=== PATIENT | female | born 1975 | race Two or more races ===

== ENCOUNTER 2016-04-12 17:37 | Emergency (ER) | payer SELFPAY ==
--- NOTE | 2016-04-12 18:08 | EDM.PDOC ---
ED HPI Trauma - General Chief Complaint: Upper Extremity Injury/Pain Stated Complaint: LEFT ARM PN Time Seen by Provider: 04/12/16 17:55 Source: Reports: Patient History Limitations: Reports: No limitations - History of Present Illness INITIAL COMMENTS - FREE TEXT/NARRATIVE: Patient returns for evaluation and treatment of left arm discomfort. She reports that symptoms began yesterday. She describes a squeezing sensation to her left arm. She also reports numbness, tingling, swelling and decreased motion in her bilateral hands. She also reports cramping to her bilateral calfs. Patient swelling in her hands which is now subsided. She denies any chest pain, neck pain, shortness of breath, fevers, nausea or vomiting. She states that she is "always" diaphoretic, no change. She denies any recent illness or any recent travel. Patient is healthy with no know medical conditions. She is not on any medications. Occurred When: yesterday Pain/Injury Location: Reports: upper extremity, left Allergies/ADRs: Allergies No Known Allergies Allergy (Verified 04/12/16 17:47) Home Medications: Ambulatory Orders . 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 Denies: chills, fever Respiratory: Denies: shortness of breath Cardiovascular: Denies: chest pain GI/Abdominal: Denies: Nausea, Vomiting Musculoskeletal: Reports: arm pain (left upper arm), hand pain (bilteral), joint swelling (bilteral hands). Denies: neck pain Neurological: Reports: headache (chronic, no chagne), numbness (bilateral hands) , tingling (bilteral hands) Trauma Exam - Physical Exam Exam: See Below Exam Limited By: No limitations General Appearance: Reports: alert, WD/WN, no apparent distress Head: Reports: atraumatic, normocephalic Eyes: bilateral eye: PERRL Throat/Mouth: Reports: Normal inspection, Normal lips, Normal oropharynx, Normal voice, No airway compromise Neck: Reports: non-tender, normal alignment, normal inspection, other (negative spurling's test) Respiratory Exam: Reports: no respiratory distress, lungs clear, normal breath sounds, chest non-tender Cardiovascular: Reports: normal peripheral pulses, regular rate, rhythm, no murmur Back: Reports: normal inspection Extremities: Reports: no evidence of injury, normal range of motion (hands, shoulders and elbows), non-tender. Denies: joint effusion (no swelling to the hands appreciated) Neurologic: Reports: alert, normal mood/affect EKG INTERPRETATION EKG Date: 04/12/16 Time: 18:25 Rhythm: NSR Rate (beats/min): 77 [place]: normal P-wave: present QRS: normal ST-T: normal QT: normal EKG Interpretation Comments: NSR at 77 bpm. No acute findings. Reviewed by myself and Dr. Ruiz. Course - Vital Signs Last Recorded V/S: Last Vital Signs Temp 36.9 C 04/12/16 17:48 Pulse 84 04/12/16 18:40 Resp 16 04/12/16 18:40 BP 124/73 04/12/16 18:40 Pulse Ox 100 04/12/16 18:40 - Orders/Labs/Meds Orders: Active Orders 24 hr Category Date Time Status EKG 12 Lead [EKG Documentation Completion] [RC] STAT Care 04/12/16 18:04 Active Labs: Laboratory Tests 04/12/16 04/12/16 04/12/16 Range/Units 18:21 18:21 18:21 WBC 8.00 (3.98-10.04) K/mm3 RBC 3.87 L (3.98-5.22) M/mm3 Hgb 12.0 (11.2-15.7) gm/L Hct 36.1 (34.1-44.9) % MCV 93.3 (79.4-94.8) fl MCH 31.0 (25.6-32.2) pg MCHC 33.2 (32.2-35.5) g/dl RDW Std Deviation 45.1 (36.4-46.3) fL Plt Count 332 (182-369) K/mm3 MPV 8.8 L (9.4-12.3) fl Neut % (Auto) 56.8 (34.0-71.1) % Lymph % (Auto) 29.1 (19.3-51.7) % [place] % (Auto) 11.1 (4.7-12.5) % Eos % (Auto) 2.5 (0.7-5.8) Baso % (Auto) 0.4 (0.1-1.2) % Neut # 4.54 (1.56-6.13) K/mm3 Lymph # 2.33 (1.18-3.74) K/mm3 [place] # 0.89 H (0.24-0.36) K/mm3 Eos # 0.20 (0.04-0.36) K/mm3 Baso # 0.03 (0.01-0.08) K/mm3 D-Dimer, Quantitative (0.19-0.59) mg/L Sodium 137 (136-145) mEq/L Potassium 3.7 (3.5-5.1) mEq/L Chloride 104 (98-107) mEq/L Carbon Dioxide 27 (21-32) mEq/L Anion Gap 9.7 (5-15) BUN 10 (7-18) mg/dL Creatinine 0.6 (0.55-1.02) mg/dL Est Cr Clr Drug Dosing TNP Estimated GFR (MDRD) > 60 (>60) mL/min BUN/Creatinine Ratio 16.7 (14-18) Glucose 106 (74-106) mg/dL Calcium 8.6 (8.5-10.1) mg/dL Magnesium 1.8 (1.8-2.4) mg/dl Total Bilirubin 0.1 L (0.2-1.0) mg/dL AST 15 (15-37) U/L ALT 31 (14-59) U/L Alkaline Phosphatase 91 (46-116) U/L CK-MB (CK-2) 1.8 (0-3.6) ng/ml Troponin I < 0.017 (0.00-0.056) ng/mL C-Reactive Protein 0.2 (<1.0) mg/dL Total Protein 6.8 (6.4-8.2) g/dl Albumin 3.4 (3.4-5.0) g/dl Globulin 3.4 gm/dL Albumin/Globulin Ratio 1.0 (1-2) TSH 3rd Generation 0.795 (0.358-3.74) uIU/mL 04/12/16 Range/Units 18:21 WBC (3.98-10.04) K/mm3 RBC (3.98-5.22) M/mm3 Hgb (11.2-15.7) gm/L Hct (34.1-44.9) % MCV (79.4-94.8) fl MCH (25.6-32.2) pg MCHC (32.2-35.5) g/dl RDW Std Deviation (36.4-46.3) fL Plt Count (182-369) K/mm3 MPV (9.4-12.3) fl Neut % (Auto) (34.0-71.1) % Lymph % (Auto) (19.3-51.7) % [place] % (Auto) (4.7-12.5) % Eos % (Auto) (0.7-5.8) Baso % (Auto) (0.1-1.2) % Neut # (1.56-6.13) K/mm3 Lymph # (1.18-3.74) K/mm3 [place] # (0.24-0.36) K/mm3 Eos # (0.04-0.36) K/mm3 Baso # (0.01-0.08) K/mm3 D-Dimer, Quantitative < 0.19 L (0.19-0.59) mg/L Sodium (136-145) mEq/L Potassium (3.5-5.1) mEq/L Chloride (98-107) mEq/L Carbon Dioxide (21-32) mEq/L Anion Gap (5-15) BUN (7-18) mg/dL Creatinine (0.55-1.02) mg/dL Est Cr Clr Drug Dosing Estimated GFR (MDRD) (>60) mL/min BUN/Creatinine Ratio (14-18) Glucose (74-106) mg/dL Calcium (8.5-10.1) mg/dL Magnesium (1.8-2.4) mg/dl Total Bilirubin (0.2-1.0) mg/dL AST (15-37) U/L ALT (14-59) U/L Alkaline Phosphatase (46-116) U/L CK-MB (CK-2) (0-3.6) ng/ml Troponin I (0.00-0.056) ng/mL C-Reactive Protein (<1.0) mg/dL Total Protein (6.4-8.2) g/dl Albumin (3.4-5.0) g/dl Globulin gm/dL Albumin/Globulin Ratio (1-2) TSH 3rd Generation (0.358-3.74) uIU/mL - Radiology Interpretation Free Text/Narrative:: CT chest, abdomen and pelvis with contrast impression per Vrad: (Chest) 1. No evidence of PE to the segmental level. 2. No aortic aneurysm. 3. No aortic dissection. (Abdomen and Pelvis) 1. No aortic aneurysm 2. No aortic dissection 3. Again demonstrated is soft tissue density in the left para-aortic region. Previously it measureed 3.6 x 2.2 cm. On today's study the soft tissue density measures 3.5 x 1.5 cm. 4. Gallstones in the gallbladder 5. Intermittent bowel wall thickening is seen in the jejunum and may represent enteritis including infectious and inflammatory etiologies. - Re-Assessments/Exams Free Text/Narrative Re-Assessment/Exam: 04/12/16 19:55 Labs returned. WBc is normal at 8.00, hgb is 12.0 and plts are 332. Trop is within normal limits at <0.017 CKMB is within normal limits at 1.8 Sodium is 137, potassium is 3.7 and chloride is 104. anion gap is 9.7, glucose is 106 Magnesium is 1.8 TSH is within normal limits at 0.795 CRP is 0.2 D-dimer is within normal limits at <0.19 reviewed the labs and ekg with the patient. [place] to likely be muscular skeletal in origin. Will discharge home at this time. Discharge instructions as documented. Departure - Departure Time of Disposition: 19:57 Disposition: Home, Self-Care 01 Condition: good Clinical Impression: Muscle spasm, Swelling of both hands Referrals: PCP,None [Primary Care Provider] - Forms: ED Department Discharge Additional Instructions: OTC aleve for pain and swelling relief. Drink plenty of fluids. Moist heat to the sore areas as needed for pain relief. May also try a topical product such as icy hot or bengay. Follow-up with family med or internal med in 2 weeks if not better. Please return to the ER should your symptoms change or worsen. - My Orders Last 24 Hours: My Active Orders 04/12/16 18:04 EKG 12 Lead [EKG Documentation Completion] [RC] STAT - Assessment/Plan Last 24 Hours: My Active Orders 04/12/16 18:04 EKG 12 Lead [EKG Documentation Completion] [RC] STAT
[2016-04-12 20:23] VITALS: BP 116/83
== END 2016-04-12 20:17 | disposition home or self-care (01) ==
LOC: JD.ED 17:37
DX: M62.838 Other muscle spasm (principal); R22.33 Localized swelling, mass and lump, upper limb, bilateral; Z98.890 Other specified postprocedural states; F17.210 Nicotine dependence, cigarettes, uncomplicated
CPT/HCPCS: 36415; 80053; 82553; 83735; 84443; 84484; 85025; 85379; 86140; 93005; 99284; 99284-25

== ENCOUNTER 2017-10-06 18:11 | Emergency (ER) | payer SELFPAY ==
[2017-10-06 18:24] VITALS: BP 130/80
--- NOTE | 2017-10-06 18:59 | EDM.PDOC ---
ED HPI GENERAL MEDICAL PROBLEM - General Chief Complaint: Neurological Problem Stated Complaint: NUMBNESS IN HANDS Time Seen by Provider: 10/06/17 18:18 Source of Information: Reports: Patient History Limitations: Reports: No Limitations - History of Present Illness INITIAL COMMENTS - FREE TEXT/NARRATIVE: 42-year-old female presenting with chief complaint of bilateral paresthesias in her hands. 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 Shortly thereafter she noted bilateral paresthesias in the tips of her fingers that would come intermittently and seemed to be associated with working. Patient does make repetitive motions with her hands all day at work. She has no weakness of her hands or fingers no color changes noted either. - Related Data Allergies Allergy/AdvReac Type Severity Reaction Status Date / Time No Known Allergies Allergy Verified 10/06/17 18:21 Home Meds: Home Meds . 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: lumbectomy to left breast, benign - Past Surgical History HEENT Surgical History: Reports: Oral Surgery Social & Family History - Tobacco Use Smoking Status *Q: Current Every Day Smoker Years of Tobacco use: 20 Packs/Tins Daily: 0.1 ED ROS GENERAL - Review of Systems Review Of Systems: See Below Constitutional: Reports: No Symptoms HEENT: Reports: No Symptoms Respiratory: Reports: No Symptoms Cardiovascular: Reports: No Symptoms Musculoskeletal: Reports: No Symptoms Skin: Reports: No Symptoms Neurological: Reports: Tingling ED EXAM, GENERAL - Physical Exam Exam: See Below Exam Limited By: No Limitations General Appearance: Alert, No Apparent Distress Head: Atraumatic, Normocephalic Respiratory/Chest: No Respiratory Distress Cardiovascular: Normal Peripheral Pulses Neurological: Alert, Oriented, CN II-XII Intact, Other (sensation intact to bilateral hands in all dermatomes to sharp/dull, strength 5/5 bilaterally) Skin Exam: Warm, Dry, Intact Course - Vital Signs Last Recorded V/S: Last Vital Signs Temp 36.1 C 10/06/17 18:21 Pulse 92 10/06/17 18:21 Resp 16 10/06/17 18:21 BP 130/80 10/06/17 18:21 Pulse Ox 100 10/06/17 18:21 - Re-Assessments/Exams Free Text/Narrative Re-Assessment/Exam: 10/06/17 22:13 42-year-old female presenting with chief complaint of bilateral hand paresthesias. Patient has a non-concerning exam. Her symptoms do not confined to a dermatome that were noted be indicative of central pathology. Regular history of physical exam are most consistent with carpal tunnel syndrome It does make sense that her symptoms started approximately 1 month ago when she started her new job and makes repetitive hand movements. At this time there is no indication for diagnostic testing in the emergency department. She had interactions for primary care and given information on carpal tunnel syndrome. She is discharged home in good condition. Departure - Departure Time of Disposition: 18:56 Disposition: Home, Self-Care 01 Clinical Impression: Carpal tunnel syndrome Qualifiers: Laterality: bilateral Qualified Code(s): G56.03 - Carpal tunnel syndrome, bilateral upper limbs - Discharge Information *PRESCRIPTION DRUG MONITORING PROGRAM REVIEWED*: Not Applicable *COPY OF PRESCRIPTION DRUG MONITORING REPORT IN PATIENT BETH: Not Applicable Instructions: Carpal Tunnel Syndrome Referrals: PCP,None [Primary Care Provider] - Forms: ED Department Discharge Additional Instructions: You were seen in the emergency department today for numbness/tingling in her hands. At this time I feel that her history and physical exam are most consistent with carpal tunnel syndrome. It is safer U to go home at this time. No further testing is needed tonight. He may follow up with her primary care physician for further care.
== END 2017-10-06 19:04 | disposition home or self-care (01) ==
LOC: JD.ED 18:11
DX: G56.03 Carpal tunnel syndrome, bilateral upper limbs (principal); F17.210 Nicotine dependence, cigarettes, uncomplicated
CPT/HCPCS: 99283

== ENCOUNTER 2019-07-23 06:29 | Emergency (ER) | payer SELFPAY ==
[2019-07-23 06:40] VITALS: BP 136/79; PULSE 108
[2019-07-23] MEDS ORDERED: Sodium Chloride 0.9% 10 ML Syringe FLUSH PRN (07:03)
--- NOTE | 2019-07-23 08:04 | EDM.PDOC ---
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 This started about 3 days ago. She had her period 3 weeks ago. She noticed some spotting a few days after that. She went to the walk in clinic and she was put on flagyl. She said a few days after taking them she started bleeding more. She has some clots at times. She has some pelvic pain at times. She does not think she is . She has no fever, chills, cough, congestion, runny nose, chest pain, shortness of breath, nausea or vomiting. 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: lumbectomy to left breast, benign - Past Surgical History HEENT Surgical History: Reports: Oral Surgery Social & Family History - Tobacco Use Smoking Status *Q: Current Every Day Smoker Years of Tobacco use: 20 Packs/Tins Daily: 0.1 ED ROS GENERAL - Review of Systems Review Of Systems: See Below Constitutional: Reports: No Symptoms HEENT: Reports: No Symptoms Respiratory: Reports: No Symptoms Cardiovascular: Reports: No Symptoms Endocrine: Reports: No Symptoms GI/Abdominal: Reports: Abdominal Pain, Nausea, Vomiting : Reports: Other (Pelvic pain and vaginal bleeding) ED EXAM, RENAL/ - Physical Exam Exam: See Below Exam Limited By: No Limitations General Appearance: Alert, No Apparent Distress Ears: Normal External Exam Nose: Normal Inspection Head: Atraumatic, Normocephalic Neck: Normal Inspection Respiratory/Chest: No Respiratory Distress, Lungs Clear, Normal Breath Sounds Cardiovascular: Regular Rate, Rhythm, No Edema, No Murmur GI/Abdominal: Soft, Non-Tender, No Organomegaly, No Mass Back Exam: Normal Inspection Extremities: Normal Inspection Course - Vital Signs Last Recorded V/S: Last Vital Signs Temp 97.9 F 07/23/19 06:38 Pulse 108 H 07/23/19 06:38 Resp 16 07/23/19 06:38 BP 136/79 07/23/19 06:38 Pulse Ox 99 07/23/19 06:38 - Orders/Labs/Meds Orders: Active Orders 24 hr Category Date Time Status Pelvic Exam, Set Up [RC] ASDIRECTED Care 07/23/19 07:03 Active Peripheral IV Care [RC] . DIRECTED Care 07/23/19 07:03 Active GC/CHLAMYDIA BY PCR [MOLEC] Stat Lab 07/23/19 08:15 Received Sodium Chloride 0.9% [Saline Flush] Med 07/23/19 07:03 Active 10 ml FLUSH ASDIRECTED PRN Peripheral IV Insertion Adult [OM.PC] Stat Oth 07/23/19 07:03 Ordered Medication Orders Sodium Chloride (Saline Flush) 10 ml FLUSH ASDIRECTED PRN PRN Reason: Keep Vein Open Last Admin: 07/23/19 08:28 Dose: 10 ml Labs: Laboratory Tests 07/23/19 07/23/19 Range/Units 06:50 06:50 WBC 11.26 H (3.98-10.04) K/mm3 RBC 4.10 (3.98-5.22) M/mm3 Hgb 12.2 (11.2-15.7) gm/dl Hct 37.4 (34.1-44.9) % MCV 91.2 (79.4-94.8) fl MCH 29.8 (25.6-32.2) pg MCHC 32.6 (32.2-35.5) g/dl RDW Std Deviation 45.9 (36.4-46.3) fL Plt Count 474 H D (182-369) K/mm3 MPV 8.7 L (9.4-12.3) fl Neut % (Auto) 69.6 (34.0-71.1) % Lymph % (Auto) 18.7 L (19.3-51.7) % [place] % (Auto) 9.6 (4.7-12.5) % Eos % (Auto) 1.6 (0.7-5.8) Baso % (Auto) 0.3 (0.1-1.2) % Neut # (Auto) 7.85 H (1.56-6.13) K/mm3 Lymph # (Auto) 2.10 (1.18-3.74) K/mm3 [place] # (Auto) 1.08 H (0.24-0.36) K/mm3 Eos # (Auto) 0.18 (0.04-0.36) K/mm3 Baso # (Auto) 0.03 (0.01-0.08) K/mm3 Manual Slide Review Sodium 139 (136-145) mEq/L Potassium 3.4 L (3.5-5.1) mEq/L Chloride 104 (98-107) mEq/L Carbon Dioxide 26 (21-32) mEq/L Anion Gap 12.4 (5-15) BUN 13 (7-18) mg/dL Creatinine 0.7 (0.55-1.02) mg/dL Est Cr Clr Drug Dosing 74.43 mL/min Estimated GFR (MDRD) > 60 (>60) mL/min BUN/Creatinine Ratio 18.6 H (14-18) Glucose 136 H (74-106) mg/dL Calcium 8.2 L (8.5-10.1) mg/dL Total Bilirubin 0.3 (0.2-1.0) mg/dL AST 16 (15-37) U/L ALT 20 (14-59) U/L Alkaline Phosphatase 87 (46-116) U/L Total Protein 7.0 (6.4-8.2) g/dl Albumin 3.4 (3.4-5.0) g/dl Globulin 3.6 gm/dL Albumin/Globulin Ratio 0.9 L (1-2) HCG, Quant < 1.0 mIU/mL Meds: Medications Generic Name Dose Route Start Last Admin Trade Name Freq PRN Reason Stop Dose Admin Sodium Chloride 10 ml 07/23/19 07:03 07/23/19 08:28 Saline Flush FLUSH 10 ml ASDIRECTED PRN Administration Keep Vein Open - Re-Assessments/Exams Free Text/Narrative Re-Assessment/Exam: 07/23/19 08:10 I ordered labs, transvaginal non OB US, and pelvic exam. I will do a wet prep and GC. 07/23/19 09:17 Her CBC and CMP look good. Her HCG is negative. Her wet prep looks good. Her US shows 2 uterine fibroids 2.7cm and 3.9cm. Endometrial thickness is normal. Small amount of fluid noted within the endometrial cavity presumably representing small amount of blood. Nonvisualized left ovary with left adnexia appearing unremarkable. Small physiologic cyst within the right ovary. I called Dr Marcano and her recommended some citotec BID for 1 week and he will see her next week. Departure - Departure Time of Disposition: 09:25 Disposition: Home, Self-Care 01 Condition: Good Clinical Impression: Vaginal bleeding Uterine fibroid Qualifiers: Uterine leiomyoma location: unspecified location Qualified Code(s): D25.9 - Leiomyoma of uterus, unspecified - Discharge Information *PRESCRIPTION DRUG MONITORING PROGRAM REVIEWED*: Not Applicable *COPY OF PRESCRIPTION DRUG MONITORING REPORT IN PATIENT BETH: Not Applicable Prescriptions: miSOPROStoL [Cytotec] 200 mcg PO BID #14 tab Referrals: PCP,None [Primary Care Provider] - Ant Marcano MD [Physician] - 1 Week Forms: ED Department Discharge, ED Return to Work/School Form Additional Instructions: Drink plenty of fluids. Take the cytotec 2 times per day for 7 days. Take tylenol or motrin for any pain. Please return if you have more bleeding such as over a pad an hour. Follow up with Dr Marcano next week. Stop taking the flagyl. Sepsis Event Note (ED) - Evaluation Sepsis Screening Result: No Definite Risk - Focused Exam Vital Signs: Vital Signs Temp Pulse Resp BP Pulse Ox 07/23/19 06:38 97.9 F 108 H 16 136/79 99 - My Orders Last 24 Hours: My Active Orders 07/23/19 07:03 Pelvic Exam, Set Up [RC] ASDIRECTED Peripheral IV Care [RC] . DIRECTED Sodium Chloride 0.9% [Saline Flush] 10 ml FLUSH ASDIRECTED PRN Peripheral IV Insertion Adult [OM.PC] Stat 07/23/19 08:15 GC/CHLAMYDIA BY PCR [MOLEC] Stat - Assessment/Plan Last 24 Hours: My Active Orders 07/23/19 07:03 Pelvic Exam, Set Up [RC] ASDIRECTED Peripheral IV Care [RC] . DIRECTED Sodium Chloride 0.9% [Saline Flush] 10 ml FLUSH ASDIRECTED PRN Peripheral IV Insertion Adult [OM.PC] Stat 07/23/19 08:15 GC/CHLAMYDIA BY PCR [MOLEC] Stat
--- NOTE | 2019-07-23 08:12 | US ---
Pelvic ultrasound: Multiple real-time images were obtained transvaginally. Comparison: No previous study. Findings: 2 hypoechoic areas are seen within the uterus believed to represent fibroids. One fibroid on the right side within the uterine body measuring up to 2.7 cm and second fibroid is on the left side within the uterine body measuring up to 3.9 cm. Endometrial thickness is 1.1 cm. Minimal fluid is seen within the endometrial cavity. Right ovary shows a small cyst measuring 1.8 cm believed to be physiologic. Left ovary is not visualized but left adnexa appears unremarkable. No free fluid is seen. Minimal nabothian cysts are present. Measurements: Uterus: Length 10.0 cm, AP height 5.3 cm, transverse width 6.1 cm Right ovary: 3.3 x 2.1 x 1.8 cm Impression: 1. 2 uterine fibroids. Size as noted above. 2. Endometrial thickness is normal. Small amount of fluid noted within the endometrial cavity presumably representing small amount of blood. 3. Nonvisualized left ovary with left adnexa appearing unremarkable. 4. Small physiologic cyst within the right ovary. Diagnostic code #2 Study was dictated in MDT
[2019-07-23 11:04] LABS: C. TRACHOMATIS BY PCR NOT DETECTED; N. GONORRHOEAE BY PCR NOT DETECTED
== END 2019-07-23 09:39 | disposition home or self-care (01) ==
LOC: JD.ED 06:29
DX: D25.9 Leiomyoma of uterus, unspecified (principal); F17.210 Nicotine dependence, cigarettes, uncomplicated; Z79.899 Other long term (current) drug therapy
CPT/HCPCS: 36415; 76830; 76830-26; 80053; 84702; 85025; 87210; 87491; 87591; 87808; 99283; 99284-25

== ENCOUNTER 2020-01-08 07:00 | Day surgery (SDC) | payer BC ==
[~2020-01-08 07:00] MED LIST: Lactated Ringers 1,000 ML IV SCH; Lidocaine 1%/Sod Bicarbonate in NS 8.4% 1 ML Syringe IDERM PRN; Sodium Chloride 0.9% 10 ML Syringe FLUSH PRN
[2020-01-08] MEDS ORDERED: Sodium Chloride 0.9% 50 ML SDV ONE (07:09)
[2020-01-08] MEDS ORDERED: Lidocaine 1% with EPINEPHrine 1:100,000 20 ML MDV ONE (07:09)
[2020-01-08] MEDS ORDERED: Lidocaine 1% 4 ML ONE (07:40)
[2020-01-08] MEDS ORDERED: Propofol 200 MG/20 ML SDV ONE (07:40)
[2020-01-08] MEDS ORDERED: ceFAZolin 1 GM Vial ONE (07:40)
[2020-01-08] MEDS ORDERED: Midazolam 1 MG/ML 2 ML SDV ONE (07:40)
[2020-01-08] MEDS ORDERED: fentaNYL 250 MCG/5 ML SDV ONE (07:41)
[2020-01-08] MEDS ORDERED: Succinylcholine/Sod PF 100 MG/5 ML SYRINGE IV ONE ×2 (07:46→08:08)
[2020-01-08] MEDS ORDERED: HYDROmorphone 0.5 MG/0.5 ML Syringe ONE (07:53)
[2020-01-08] MEDS ORDERED: Dexamethasone 4 MG/ML 5 ML MDV ONE (08:34)
[2020-01-08] MEDS ORDERED: Ondansetron 4 MG/2 ML SDV ONE (08:35)
[2020-01-08] MEDS ORDERED: Lactated Ringers 1,000 ML ONE (08:45)
[2020-01-08] MEDS ORDERED: Ketorolac 30 MG/ML SDV ONE (08:52)
[2020-01-08] MEDS ORDERED: fentaNYL 100 MCG/2 ML SDV IVPUSH PRN (09:17)
[2020-01-08] MEDS ORDERED: HYDROmorphone 0.5 MG/0.5 ML Syringe IVPUSH PRN (09:17)
[2020-01-08] MEDS ORDERED: Ondansetron 4 MG/2 ML SDV IVPUSH PRN (09:17)
--- NOTE | 2020-01-08 09:28 | PCM.OPNOTE ---
- General Post-Op/Procedure Note Date of Surgery/Procedure: 01/08/20 Operative Procedure(s): Total vaginal hysterectomy bilateral salpingectomy (removal of remaining tubal tissue patient had previous tubal ligation) Pre Op Diagnosis: Heavy irregular menses, fibroid uterus Post-Op Diagnosis: Same Primary Surgeon: Ant Marcano Secondary Surgeon: Tim Be Anesthesia Provider: Lincoln Elliott Part Time Receptionist: Flavia Taylor I (PAS) Reason Part Time Receptionist Was Necessary: Retraction, decrease comorbidity and mortality Role of Part Time Receptionist: Retraction, decrease comorbidity and mortality Fluid Replacement, Intraop: 1,400 Output, Urine Amount: 50 EBL in mLs: 100 Drain/Tube Comments:: None Condition: Good Free Text/Narrative:: Intake & Output 01/07/20 01/08/20 01/08/20 22:59 06:59 14:59 Output Total 50 Balance -50 Patient was transferred to the operating room medical office building and placed in the low dorsal position after general anesthesia with endotracheal intubation. SCDs in place and functioning. Ancef 2 g given intravenously prior to surgery. Timeout was performed confirming name, date of and planned procedure. Patient was prepared and draped in a sterile fashion. [place] under anesthesia before the prep had revealed anterior uterus irregular in consistency not significantly enlarged if at all. No adnexal masses palpated. Bladder was drained of urine 50 mL. 10 mL of lidocaine 0.25% with epinephrine injected in multiple confluent areas around the cervix. Circumscribing incision was made. Posterior colpotomy performed without difficulty. Utilizing Enseal closure device the uterosacral cardinal ligaments bilaterally were crossclamped activated and device incised. An additional bite on the left and right side for the uterine vasculature was performed. Anterior colpotomy was then performed without difficulty. During cephalad utilizing Enseal crossclamping activating and incising until the area of the triple pedicles was approximated. Crossclamping with Anthony clamps the uterus was removed along with the cervix. The tubes were easily identified and grasped with Elbridge clamp and brought into the operative area crossclamped with the Enseal and activated and incised and removed. Both ovaries appeared normal. Additional small bleeders were electrocoagulated with the Enseal device. Hemostasis was normal. Sponge needle pack instrument count sharp count correct x2 and the vaginal cuff was closed with a running locking suture posteriorly of 0 Monocryl. Additional 0 Monocryl utilized to approximate the anterior to the posterior vaginal cuff with running locking suture. Hemostasis was obtained without difficulty and no bleeding prior to closure of the vaginal cuff. Patient transported postanesthesia care unit in satisfactory condition. I called her daughter Joi [phone] at 0910 hrs. and all questions answered to voiced satisfaction. Patient is planning dismissal today.
--- NOTE | 2020-01-08 10:44 | PCM.POSTAN ---
POST ANESTHESIA ASSESSMENT - MENTAL STATUS Mental Status: Somnolent - VITAL SIGNS Vital Signs: Last Vital Signs Temp 36.5 C 01/08/20 10:35 Pulse 85 01/08/20 10:35 Resp 19 01/08/20 10:35 BP 111/70 01/08/20 10:35 Pulse Ox 96 01/08/20 10:38 - RESPIRATORY Respiratory Status: Respiratory Rate WNL, Airway Patent, O2 Saturation Stable, Supplemental Oxygen - CARDIOVASCULAR CV Status: Pulse Rate WNL, Blood Pressure Stable - GASTROINTESTINAL GI Status: No Symptoms - PAIN Pain Score: 0 - POST OP HYDRATION Hydration Status: Adequate & Stable
--- NOTE | 2020-01-08 10:53 | PCM.PREANE ---
<Enid Paulino - Last Filed: 01/08/20 10:47> Preanesthetic Assessment - Physical Assessment Height: 1.55 m Weight: 73.936 kg - Allergies Allergies/Adverse Reactions: Allergies Allergy/AdvReac Type Severity Reaction Status Date / Time No Known Allergies Allergy Verified 09/24/18 01:58 PreAnesthesia Questionnaire - Past Health History Medical/Surgical History: Denies Medical/Surgical History MEDICAL LIAISON History: Reports: Other OB/BYN History: lumbectomy to left breast, benign - Past Surgical History HEENT Surgical History: Reports: Oral Surgery - HOME MEDS Home Medications: Home Meds Acetaminophen 650 mg PO Q6H #50 capsule 01/08/20 [Rx] Ibuprofen [Motrin] 600 mg PO Q6H PRN #50 tab 01/08/20 [Rx] Ondansetron [Zofran ODT] 4 mg PO Q6H PRN #20 tab.dis 01/08/20 [Rx] oxyCODONE HCl/Acetaminophen [Percocet 5-325 mg Tablet] 1 each PO Q6H #12 tablet 01/08/20 [Rx] <Lincoln Elliott - Last Filed: 01/08/20 11:18> Preanesthetic Assessment - Procedure Proposed Procedure: Total Vaginal Hysterectomy - Anesthesia/Transfusion/Family Hx Anesthesia History: Prior Anesthesia Without Reaction - Review of Systems General: No Symptoms Pulmonary: No Symptoms Cardiovascular: No Symptoms Gastrointestinal: No Symptoms Neurological: No Symptoms Other: Reports: None - Physical Assessment NPO Status Date: 01/07/20 NPO Status Time: 20:00 Vital Signs: Last Vital Signs Temp 97.6 F 01/08/20 11:05 Pulse 87 01/08/20 11:05 Resp 19 01/08/20 11:05 BP 105/63 01/08/20 11:05 Pulse Ox 99 01/08/20 11:05 ASA Class: 2 Mental Status: Alert & Oriented x3 Airway Class: Mallampati = 3 Dentition: Reports: Edentulous ROM/Head Extension: Full Lungs: Clear to Auscultation, Normal Respiratory Effort Cardiovascular: Regular Rate, Regular Rhythm - Lab Values: Laboratory Last Values Urine HCG, Qual Negative (NEGATIVE) 01/08/20 06:57 Blood Type O POSITIVE 01/08/20 07:26 Gel Antibody Screen Negative 01/08/20 07:26 - Acknowledgements Anesthesia Type Planned: General Anesthesia Pt an Appropriate Candidate for the Planned Anesthesia: Yes Alternatives and Risks of Anesthesia Discussed w Pt/Guardian: Yes Pt/Guardian Understands and Agrees with Anesthesia Plan: Yes PreAnesthesia Questionnaire - CURRENT (IN HOUSE) MEDS Current Meds: Current Medications Fentanyl (Sublimaze) 50 mcg IVPUSH Q5M PRN PRN Reason: Pain Stop: 01/08/20 18:00 Last Admin: 01/08/20 10:16 Dose: 50 mcg Documented by: Hydromorphone HCl (Dilaudid) 0.5 mg IVPUSH Q10M PRN PRN Reason: Pain (severe 7-10) Stop: 01/08/20 18:00 Last Admin: 01/08/20 10:44 Dose: 0.5 mg Documented by: Lactated Ringer's (Ringers, Lactated) 1,000 mls @ 125 mls/hr IV ASDIRECTED MARY Stop: 01/08/20 23:00 Last Admin: 01/08/20 07:25 Dose: 125 mls/hr Documented by: Lidocaine/Sodium Bicarbonate (Buffered Lidocaine 1% In Ns 8.4%) 0.25 ml IDERM ONETIME PRN PRN Reason: Prior to IV Start Stop: 01/08/20 18:00 Last Admin: 01/08/20 07:25 Dose: 0.25 ml Documented by: Ondansetron HCl (Zofran) 4 mg IVPUSH ONETIME PRN PRN Reason: Nausea/Vomiting Stop: 01/08/20 18:00 Sodium Chloride (Saline Flush) 10 ml FLUSH ASDIRECTED PRN PRN Reason: Keep Vein Open Stop: 01/08/20 18:00 Discontinued Medications Cefazolin Sodium (Ancef) Confirm Administered Dose 2 gm .ROUTE .STK-MED ONE Stop: 01/08/20 07:41 Dexamethasone (Dexamethasone) Confirm Administered Dose 20 mg .ROUTE .STK-MED ONE Stop: 01/08/20 08:35 Fentanyl (Sublimaze) Confirm Administered Dose 250 mcg .ROUTE .STK-MED ONE Stop: 01/08/20 07:42 Hydromorphone HCl (Dilaudid) Confirm Administered Dose 0.5 mg .ROUTE .STK-MED ONE Stop: 01/08/20 07:54 Lidocaine HCl (Xylocaine-Mpf 1%) Confirm Administered Dose 4 mls @ as directed .ROUTE .STK-MED ONE Stop: 01/08/20 07:41 Lactated Ringer's (Ringers, Lactated) Confirm Administered Dose 1,000 mls @ as directed .ROUTE .STK-MED ONE Stop: 01/08/20 08:46 Ketorolac Tromethamine (Toradol) Confirm Administered Dose 30 mg .ROUTE .STK-MED ONE Stop: 01/08/20 08:53 Lidocaine/Epinephrine (Xylocaine 1% With Epinephrine 1:100,000) Confirm Administered Dose 20 ml .ROUTE .ST-MED ONE Stop: 01/08/20 07:10 Last Admin: 01/08/20 08:18 Dose: 2.5 ml Documented by: Midazolam HCl (Versed 1 Mg/Ml) Confirm Administered Dose 4 mg .ROUTE .STK-MED ONE Stop: 01/08/20 07:41 Ondansetron HCl (Zofran) Confirm Administered Dose 8 mg .ROUTE .STK-MED ONE Stop: 01/08/20 08:36 Propofol (Diprivan 20 Ml) Confirm Administered Dose 400 mg .ROUTE .STK-MED ONE Stop: 01/08/20 07:41 Sodium Chloride (Normal Saline) Confirm Administered Dose 50 ml .ROUTE .STK-MED ONE Stop: 01/08/20 07:10 Last Admin: 01/08/20 08:18 Dose: 7.5 ml Documented by:
--- NOTE | 2020-01-08 11:20 | PCM48HPAN ---
Post Anesthesia Note - EVALUATION WITHIN 48HRS OF ANESTHETIC Vital Signs in Normal Range: Yes Patient Participated in Evaluation: Yes Respiratory Function Stable: Yes Airway Patent: Yes Cardiovascular Function Stable: Yes Hydration Status Stable: Yes Pain Control Satisfactory: Yes Nausea and Vomiting Control Satisfactory: Yes Mental Status Recovered: Yes Vital Signs: Last Vital Signs Temp 97.6 F 01/08/20 11:05 Pulse 87 01/08/20 11:05 Resp 19 01/08/20 11:05 BP 105/63 01/08/20 11:05 Pulse Ox 99 01/08/20 11:05 - COMMENTS/OBSERVATIONS Free Text/Narrative:: Patient in stage 2 recovery, preparing for the discharge home
[2020-01-08 12:46] VITALS: BP 97/52; PULSE 73
== END 2020-01-08 12:40 | disposition home or self-care (01) ==
LOC: JD.SDS 07:00
PROVIDERS: ATTEND Obstetrics & Gynecology
DX: D25.2 Subserosal leiomyoma of uterus (principal); D25.1 Intramural leiomyoma of uterus; N80.0 Endometriosis of uterus; N87.9 Dysplasia of cervix uteri, unspecified; N72 Inflammatory disease of cervix uteri; N88.8 Other specified noninflammatory disorders of cervix uteri; N73.6 Female pelvic peritoneal adhesions (postinfective); N83.8 Other noninflammatory disorders of ovary, fallopian tube and broad ligament; F17.210 Nicotine dependence, cigarettes, uncomplicated; Z98.51 Tubal ligation status; Z90.10 Acquired absence of unspecified breast and nipple; Z90.49 Acquired absence of other specified parts of digestive tract; Z98.890 Other specified postprocedural states
CPT/HCPCS: 36415; 58262; 81025; 86850; 86900; 86901; J0330; J0690; J1100; J1170; J1885; J2001; J2250; J2405; J2704; J3010; J7120

== ENCOUNTER 2021-11-27 08:49 | Emergency (ER) | payer MEDICAID, OTHER ==
[2021-11-27 09:03] VITALS: BP 140/98; PULSE 85
== END 2021-11-27 09:55 | disposition home or self-care (01) ==
LOC: JD.ED 08:49
DX: R51.9 Headache, unspecified (principal); F17.210 Nicotine dependence, cigarettes, uncomplicated
CPT/HCPCS: 99283

== ENCOUNTER 2024-04-24 01:22 | Emergency (ER) | payer SELFPAY ==
[2024-04-24 01:36] VITALS: BP 154/90; PULSE 94
== END 2024-04-24 02:00 | disposition home or self-care (01) ==
LOC: JD.ED 01:22
DX: F15.10 Other stimulant abuse, uncomplicated (principal); Z79.899 Other long term (current) drug therapy
CPT/HCPCS: 82947; 93005; 93010; 99284; 99285

== ENCOUNTER 2024-04-28 20:08 | Emergency (ER) | payer SELFPAY ==
[2024-04-28 20:33] VITALS: BP 128/86
[2024-04-28] MEDS ORDERED: Sodium Chloride 0.9% 10 ML Syringe FLUSH PRN (20:41)
[2024-04-28 21:03] LABS: BASOPHILS ABSOLUTE AUTO 0.1 K/mm3 (0.0-0.2); BASOPHILS PERCENT AUTO 0.5 % (0.0-1.0); EOSINOPHILS ABSOLUTE AUTO 0.1 K/mm3 (0.0-0.4); EOSINOPHILS PERCENT AUTO 1.2 % (0.0-6.0); HEMOGLOBIN 15.6 gm/dl (12.0-16.0); IMMATURE GRAN ABSOLUTE AUTO 0.03 K/mm3 (0.00-0.05); IMMATURE GRAN PERCENT AUTO 0.3 % (0.0-0.4); LYMPHOCYTES ABSOLUTE AUTO 2.5 K/mm3 (1.0-4.8); LYMPHOCYTES PERCENT AUTO 27.2 % (24.0-44.0); MEAN CORPUSCULAR HGB CONC 34.7 g/dl (32.0-36.0); MEAN CORPUSCULAR VOLUME 92.4 fl (83.0-99.0); MEAN PLATELET VOLUME 8.5 fl (9.4-12.3); MONOCYTES ABSOLUTE AUTO 0.9 K/mm3 (0.0-0.8); MONOCYTES PERCENT AUTO 9.5 % (0.0-8.0); NEUTROPHILS ABSOLUTE AUTO 5.6 K/mm3 (1.8-7.7); NEUTROPHILS PERCENT AUTO 61.3 % (41.0-71.0); PLATELET COUNT,PLT 358 K/mm3 (150-400); RED BLOOD CELL COUNT 4.87 M/mm3 (4.10-5.30); WHITE BLOOD CELL COUNT,WBC 9.15 K/mm3 (3.9-11.3)
[2024-04-28 21:28] LABS: LACTIC ACID 0.9 mmol/L (0.4-2.0)
[2024-04-28 21:31] LABS: APPEARANCE,URINE CLEAR (Clear); BILIRUBIN,URINE NEGATIVE (Negative); COLOR,URINE YELLOW (Yellow); GLUCOSE,URINE NEGATIVE (Negative); KETONES,URINE NEGATIVE (Negative); LEUKOCYTE ESTERASE,URINE NEGATIVE (Negative); NITRITE,URINE NEGATIVE (Negative); OCCULT BLOOD,URINE TRACE-INTACT (Negative); PROTEIN,URINE NEGATIVE (Negative); UROBILINOGEN,URINE 0.2 (0.2-1.0)
[2024-04-28 21:34] LABS: A/G RATIO 0.9 (1-2); ALANINE AMINOTRANSFERASE,ALT 37 U/L (14-59); ALBUMIN 3.7 g/dl (3.4-5.0); ALKALINE PHOSPHATASE 89 U/L (46-116); ANION GAP 13.1 (5-15); ASPARTATE AMNIOTRANSFERASE,AST 17 U/L (15-37); BILIRUBIN TOTAL 0.5 mg/dL (0.2-1.0); BLOOD UREA NITROGEN,BUN 12 mg/dL (7-18); C-REACTIVE PROTEIN 0.25 mg/dL (<0.30); CALCIUM 8.7 mg/dL (8.5-10.1); CARBON DIOXIDE,CO2 23 mEq/L (21-32); CHLORIDE,CL 102 mEq/L (98-107); CREATININE 0.8 mg/dL (0.55-1.02); EST CRCL DRUG DOSING (CG) 64.89 mL/min; ESTIMATED GFR 91 mL/min (>60); GLUCOSE RANDOM 109 mg/dL (70-99); MAGNESIUM 1.9 mg/dL (1.8-2.4); POTASSIUM,K 4.1 mEq/L (3.5-5.1); SODIUM,NA 134 mEq/L (136-145)
[2024-04-28 21:38] LABS: TROPONIN I HIGH SENSITIVITY < 4 pg/mL (<=51)
[2024-04-28 21:41] LABS: BARBITURATE SCREEN,URINE NEGATIVE (CUTOFF=200); BENZODIAZEPINES SCREEN,URINE NEGATIVE (CUTOFF=150); BUPRENORPHINE SCREEN,URINE NEGATIVE (CUTOFF=10); METHADONE SCREEN, URINE NEGATIVE (CUTOFF=200); METHAMPHETAMINES SCREEN, URINE PRESUMPTIVE POSITIVE (CUTOFF=500); OXYCODONE SCREEN,URINE NEGATIVE (CUT0FF=100); THC SCREEN,URINE 20 NG/ML NEGATIVE (CUTOFF=50)
[2024-04-28] MEDS: Ondansetron 4 MG Tab.DIS PO ONE (21:43)
[2024-04-28] MEDS: Ondansetron 4 MG/2 ML SDV IVPUSH ONE (21:43)
[2024-04-28 21:45] LABS: AMPHETAMINES SCREEN, URINE PRESUMPTIVE POSITIVE (CUTOFF=500)
[2024-04-28 21:47] LABS: BACTERIA,URINE FEW /hpf (FEW); MUCUS,URINE MANY /hpf (FEW); SQUAMOUS EPITHELIAL CELLS,UR 0-5 /hpf (0-5); WBC,URINE 0-5 /hpf (0-5)
[2024-04-28 23:26] VITALS: PULSE 84
== END 2024-04-28 23:12 | disposition home or self-care (01) ==
LOC: JD.ED 20:08
DX: R10.10 Upper abdominal pain, unspecified (principal); F19.10 Other psychoactive substance abuse, uncomplicated; I10 Essential (primary) hypertension; E66.9 Obesity, unspecified; F17.210 Nicotine dependence, cigarettes, uncomplicated; Z79.899 Other long term (current) drug therapy; Z68.33 Body mass index [BMI] 33.0-33.9, adult
CPT/HCPCS: 36415; 71045; 80053; 80306; 80307; 81001; 81025; 83605; 83690; 83735; 84484; 85025; 86140; 87040; 87428; 93005; 99284; A9270